=== PATIENT | male | born 1985 | race Caucasian/White ===

== ENCOUNTER 2016-12-26 12:39 | Inpatient (IN) | payer MEDICARE, MEDICAID ==
[2016-12-26] MEDS ORDERED: ACETAMINOPHEN 325 MG TABLET PO ONE (13:15)
[2016-12-26] MEDS ORDERED: NORMAL SALINE 1000 ML 1,000 ML IV ONE ×2 (13:16→15:19)
[2016-12-26 13:25] LABS: ABSOLUTE LYMPHOCYTES (AUTO) 4.4 10^3/uL (0.5-4.7); ABSOLUTE MONOCYTES (AUTO) 0.4 10^3/uL (0.1-1.4); ABSOLUTE NEUT (AUTO) 6.4 10^3/uL (1.7-8.2); BASOPHILS % (AUTO) 0.3 % (0-2); HEMATOCRIT 42.9 % (37.9-51.0); HEMOGLOBIN 14.9 g/dL (13.5-17.0); HGB HCT DIFFERENCE 1.8; LYMPHOCYTES % (AUTO) 39.1 % (13-45); MEAN CORPUSCULAR HEMOGLOBIN 33.8 pg (27.0-33.4); MEAN CORPUSCULAR HGB CONC 34.7 g/dL (32.0-36.0); MEAN CORPUSCULAR VOLUME 98 fl (80-97); MONOCYTES % (AUTO) 3.7 % (3-13); RED BLOOD COUNT 4.39 10^6/uL (4.35-5.55); RED CELL DISTRIBUTION WIDTH 17.4 % (11.5-14.0); SEGMENTED NEUTROPHILS % (AUTO) 56.9 % (42-78); WHITE BLOOD COUNT 11.2 10^3/uL (4.0-10.5)
--- NOTE | 2016-12-26 13:38 | ER Document Report ---
ED Respiratory Problem <JULIANNA SHOOK - Last Filed: 12/26/16 16:37> - General Time seen by provider: 13:10 Mode of Arrival: Ambulatory Information source: Parent TRAVEL OUTSIDE OF THE [place] IN LAST 30 DAYS: No - HPI Patient complains to provider of: Cough Onset: Other - see HPI note EMS treatments: Oxygen Associated symptoms: Congestion, Cough, Fever <CAROLIN LEO - Last Filed: 01/04/17 22:25> - General Chief Complaint: Shortness Of Breath Stated Complaint: RESPIRATORY DISTRESS Notes: Patient is a 31 year old male with a history of Down's syndrome presenting to the emergency department for cough, fever, and difficulty breathing. Patient had a cough that was onset on Saturday. Patient had a fever of 102.8 last night. Patient saw his PCP at 11:30 today and was found to have a 87% pulse ox and tachycardia. Patient was sent to the ED from Dr. Bright's office via EMS. Patient was placed on oxygen and now has a pulse ox of 91%. Patient was given some nyquil last night. Patient's PCP is Dr. Mckinley but he saw Dr. Cabral here in [place] today. Patient also has depression and takes antidepressants. Patient has no known allergies. (CAROLIN LEO) - Related Data Allergies/Adverse Reactions: No Known Allergies Allergy (Unverified 05/08/16 17:19) Home Medications: Current Home Medications Amitriptyline HCl [Elavil 10 mg Tablet] 10 mg PO Q8 12/26/16 [History] Bupropion HCl [Wellbutrin 100 mg Tablet] 100 mg PO DAILY 12/26/16 [History] Citalopram Hydrobromide [Celexa 40 mg Tablet] 40 mg PO DAILY 12/26/16 [History] Past Medical History - General Information source: Parent - Social History Smoking Status: Never Smoker Cigarette use (# per day): No Chew tobacco use (# tins/day): No Smoking Education Provided: No Frequency of alcohol use: None Drug Abuse: None Lives with: Family, Parents Family History: Other - Father with Bipolar Disorder. 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 <CAROLIN LEO - Last Filed: 01/04/17 22:25> Review of Systems - Review of Systems Constitutional: See HPI, Fever EENT: No symptoms reported Cardiovascular: No symptoms reported Respiratory: See HPI, Cough Gastrointestinal: No symptoms reported Genitourinary: No symptoms reported Male Genitourinary: No symptoms reported Musculoskeletal: No symptoms reported Skin: No symptoms reported Hematologic/Lymphatic: No symptoms reported Neurological/Psychological: No symptoms reported -: Yes All other systems reviewed and negative <CAROLIN LEO - Last Filed: 01/04/17 22:25> Physical Exam - Vital signs Interpretation: Tachycardic, Febrile - General General appearance: Appears well, Alert In distress: Mild - HEENT Head: Normocephalic, Atraumatic Eyes: Normal Pupils: PERRL Mucous membranes: Moist - Respiratory Respiratory status: No respiratory distress, Other - 91% on 2L O2 Chest status: Nontender Breath sounds: Rhonchi Chest palpation: Normal - Cardiovascular Rhythm: Regular Heart sounds: Normal auscultation Murmur: No - Abdominal Inspection: Normal Distension: No distension Bowel sounds: Normal Tenderness: Nontender Organomegaly: No organomegaly - Back Back: Normal, Nontender - Extremities General upper extremity: Normal inspection, Normal ROM, Normal strength General lower extremity: Normal inspection, Normal ROM, Normal strength - Neurological Neuro grossly intact: Yes Cognition: Normal Orientation: AAOx4 [place] Coma Scale Eye Opening: Spontaneous Daniele Coma Scale Verbal: Oriented [place] Coma Scale Motor: Obeys Commands Daniele Coma Scale Total: 15 Speech: Other - patient does not talk much Sensory: Normal - Psychological Associated symptoms: Normal affect, Normal mood - Skin Skin Temperature: Hot Skin Moisture: Dry <CAROLIN LEO - Last Filed: 01/04/17 22:25> - Vital signs Vitals: Resp 17 12/26/16 12:56 Course - Laboratory Result Diagrams: 12/26/16 13:05 12/26/16 13:05 - Diagnostic Test Radiology reviewed: Image reviewed, Reports reviewed - Bilateral lower lobe pneumonias right greater than left - Consults Dr. Harris Time consulted: 15:20 Consulted provider: will come to ER <JULIANNA SHOOK - Last Filed: 12/26/16 16:37> - Laboratory Result Diagrams: 12/28/16 06:09 12/28/16 06:09 <CAROLIN LEO - Last Filed: 01/04/17 22:25> - Re-evaluation Re-evalutation: 12/26/16 15:23 Patient originally had a pulse ox of 91% on 2 L nasal cannula. Heart rate 138. After 2 breathing treatments and a liter of IV fluids and Tylenol, his pulse is down to 115 and his pulse ox is up to 94% on 2 L. (JULIANNA SHOOK) - Vital Signs Vital signs: Temp Pulse Resp BP Pulse Ox 97.9 F 102 H 20 111/70 94 12/29/16 11:32 12/29/16 11:32 12/29/16 11:32 12/29/16 11:32 12/29/16 11:32 - Laboratory Laboratory results interpreted by me: 12/26/16 12/26/16 13:05 13:05 WBC 11.2 H MCV 98 H MCH 33.8 H RDW 17.4 H Sodium 135.6 L Glucose 124 H Critical Care Note - Critical Care Note Total time excluding time spent on procedures (mins): 30 <JULIANNA SHOOK - Last Filed: 12/26/16 16:37> Discharge - Discharge Admitting Provider: Hospitalist Unit Admitted: Medical Floor <JULIANNA SHOOK - Last Filed: 12/26/16 16:37> <CAROLIN LEO - Last Filed: 01/04/17 22:25> - Discharge Clinical Impression: Hypoxemia, Tachycardia, Dehydration, Down syndrome Pneumonia Qualifiers: Pneumonia type: due to unspecified organism Laterality: bilateral Lung location : lower lobe of lung Qualified Code(s): J18.9 - Pneumonia, unspecified organism Fever Qualifiers: Fever type: unspecified Qualified Code(s): R50.9 - Fever, unspecified Condition: Stable Disposition: HOME, SELF-CARE Scribe Documentation - Scribe Written by Scribe:: Carolin Leo 12/26/16 13:40 acting as scribe for :: Carlos <CAROLIN LEO - Last Filed: 01/04/17 22:25>
[2016-12-26 13:48] LABS: ALANINE AMINOTRANSFERASE 44 U/L (21-72); ALBUMIN 3.8 g/dL (3.5-5.0); ALKALINE PHOSPHATASE 78 U/L (38-126); ANION GAP 10 (5-19); ASPARTATE AMINO TRANSFERASE 31 U/L (17-59); BILIRUBIN,TOTAL 0.6 mg/dL (0.2-1.3); BLOOD UREA NITROGEN 19 mg/dL (7-20); CARBON DIOXIDE 26 mmol/L (22-30); CHLORIDE 100 mmol/L (98-107); CREATININE RESULT 0.86 mg/dL (0.52-1.25); GLUCOSE 124 mg/dL (75-110); SODIUM 135.6 mmol/L (137-145); TOTAL PROTEIN 6.8 g/dL (6.3-8.2)
[2016-12-26 14:10] LABS: VENOUS BLOOD BASE EXCESS 3.3 mmol/L; VENOUS BLOOD HCO3 30.6 mmol/L (20-32); VENOUS BLOOD PCO2 56.7 mmHg (35-63); VENOUS BLOOD PH 7.35 (7.30-7.42)
[2016-12-26] MEDS ORDERED: IPRATROPIUM/ALBUTEROL 0.5-2.5 MG/3 ML AMPUL NEB ONE (14:15)
[2016-12-26] MEDS ORDERED: ALBUTEROL SULFATE 0.083% NEB 2.5 MG/3 ML AMPUL NEB ONE (14:53)
[2016-12-26] MEDS ORDERED: LEVOFLOXACIN 750 MG/D5W RTU 150 ML IV ONE (14:53)
[2016-12-26] MEDS ORDERED: ONDANSETRON 4 MG TAB.RAPDIS PO PRN (16:25)
[2016-12-26] MEDS: NORMAL SALINE 1000 ML 1,000 ML IV PRN (16:41)
--- NOTE | 2016-12-26 16:56 | PDOC H&P ---
History of Present Illness Admission Date/PCP: FADI MCKENZIE MD Patient complains of: Shortness of breath and pneumonia. History of Present Illness: HALLEY SPRING is a 31 year old male with Down syndrome who presents with a 2 day history of cough shortness of breath and was found to have pneumonia today. He has also had hypoxia was found to have oxygen saturations of 87% with presentation to his primary care office today. The patient has not been around anyone who has been sick. The patient does not give any history and all history is given by his mother who is at the bedside. Past Medical History Cardiac Medical History: Reports: None Pulmonary Medical History: Reports: None EENT Medical History: Reports: None Neurological Medical History: Reports: Other - Down syndrome Endocrine Medical History: Reports: None Renal/ Medical History: Reports: None Malignancy Medical History: Reports: Leukemia - as a child GI Medical History: Reports: None Skin Medical History: Reports: None Psychiatric Medical History: Reports: Depression Traumatic Medical History: Reports: None Infectious Medical History: Reports: None Past Surgical History Past Surgical History: Reports: Other - port for leukemia as a child Social History Information Source: Parent Lives with: Family, Parents Smoking Status: Never Smoker Frequency of Alcohol Use: None Hx Recreational Drug Use: No Drugs: None - Advance Directive Resuscitation Status: Full Code Surrogate healthcare decision maker:: Mother is his caregiver Family History Family History: Other - Father with Bipolar Disorder. Family History: Father is and had bipolar disorder. Mother is alive and healthy. Parental Family History Reviewed: Yes Children Family History Reviewed: No Sibling(s) Family History Reviewed.: No Medication/Allergy Home Medications: Ondansetron [Zofran Odt 4 mg Tablet] 1 - 2 tab PO Q4H PRN #15 tab.rapdis Allergies/Adverse Reactions: No Known Allergies Allergy (Unverified 05/08/16 17:19) Review of Systems ROS unobtainable: Due to mental status - Patient has Down syndrome. History is obtained from the mother. Constitutional: PRESENT: chills, fever(s) Eyes: ABSENT: visual disturbances Ears: ABSENT: hearing changes Cardiovascular: PRESENT: dyspnea on exertion. ABSENT: edema, orthropnea Respiratory: PRESENT: as per HPI Gastrointestinal: ABSENT: abdominal pain, constipation, diarrhea, hematemesis, hematochezia, nausea, vomiting Musculoskeletal: ABSENT: joint swelling Integumentary: ABSENT: rash, wounds Neurological: PRESENT: other - Patient has Down's syndrome Psychiatric: ABSENT: anxiety, depression, homidical ideation, suicidal ideation Hematologic/Lymphatic: ABSENT: easy bleeding, easy bruising Physical Exam Vital Signs: Temp Pulse Resp BP Pulse Ox 30 H 115/95 H 92 12/26/16 15:01 12/26/16 15:01 12/26/16 15:01 General appearance: PRESENT: no acute distress, well-developed, well-nourished Head exam: PRESENT: atraumatic, normocephalic Eye exam: PRESENT: conjunctiva pink, EOMI, PERRLA. ABSENT: scleral icterus Ear exam: PRESENT: normal external ear exam Mouth exam: PRESENT: moist, tongue midline Neck exam: ABSENT: carotid bruit, JVD, lymphadenopathy, thyromegaly Respiratory exam: PRESENT: rales - Bibasilar inspiratory rales.. ABSENT: rhonchi, wheezes Cardiovascular exam: PRESENT: tachycardia. ABSENT: diastolic murmur, rubs, systolic murmur GI/Abdominal exam: PRESENT: normal bowel sounds, soft. ABSENT: distended, guarding, mass, organolmegaly, rebound, tenderness Rectal exam: PRESENT: deferred Extremities exam: ABSENT: calf tenderness, clubbing, pedal edema Neurological exam: PRESENT: alert, awake, oriented to person, oriented to place , CN II-XII grossly intact. ABSENT: oriented to time, oriented to situation, motor sensory deficit Psychiatric exam: PRESENT: anxious Skin exam: PRESENT: dry, intact, warm. ABSENT: cyanosis, rash Results Laboratory Results: 12/26/16 13:05 12/26/16 13:05 12/26/16 12/26/16 12/26/16 13:05 13:05 13:45 WBC 11.2 H RBC 4.39 Hgb 14.9 Hct 42.9 MCV 98 H MCH 33.8 H MCHC 34.7 RDW 17.4 H Plt Count 159 Seg Neutrophils % 56.9 Lymphocytes % 39.1 Monocytes % 3.7 Eosinophils % 0.0 Basophils % 0.3 Absolute Neutrophils 6.4 Absolute Lymphocytes 4.4 Absolute Monocytes 0.4 Absolute Eosinophils 0.0 Absolute Basophils 0.0 VBG pH 7.35 VBG pCO2 56.7 VBG HCO3 30.6 VBG Base Excess 3.3 Sodium 135.6 L Potassium 4.0 Chloride 100 Carbon Dioxide 26 Anion Gap 10 BUN 19 Creatinine 0.86 Est GFR ( Amer) > 60 Est GFR (Non-Af Amer) > 60 Glucose 124 H Calcium 9.0 Total Bilirubin 0.6 AST 31 ALT 44 Alkaline Phosphatase 78 Total Protein 6.8 Albumin 3.8 Impressions: Chest X-Ray 12/26/16 13:15 IMPRESSION: Bibasilar airspace disease worrisome for pneumonia. Assessment & Plan - Diagnosis (1) Pneumonia Qualifiers: Pneumonia type: due to unspecified organism Laterality: bilateral Lung location: lower lobe of lung Qualified Code(s): J18.9 - Pneumonia, unspecified organism Is this a current diagnosis for this admission?: YesPlan: The patient has bilateral pneumonia along with hypoxia. We will treat with Levaquin. Influenza tests are pending at this time. We'll treat for presumptive community-acquired gram-positive cocci pneumonia. (2) Dehydration Is this a current diagnosis for this admission?: YesPlan: We'll give IV fluids. (3) Down syndrome Is this a current diagnosis for this admission?: YesPlan: The patient lives with his mother who is his caregiver. - Time Time Spent: 50 to 70 Minutes - Inpatient Certification Medical Necessity: Need for IV Antibiotics - Plan Summary Plan Summary: We'll make a full admission. given his hypoxia, I anticipate this will require greater than a two midnight hospital stay.
[2016-12-26] MEDS ORDERED: ALBUTEROL SULFATE 0.042% NEB (1.25 MG/3 ML) AMPUL NEB ONE (20:23)
[2016-12-26] MEDS: ALBUTEROL SULFATE 0.042% NEB (1.25 MG/3 ML) AMPUL NEB SCH (21:04)
[2016-12-26 21:15] LABS: APPEARANCE,URINE SLIGHTLY-CLOUDY; BILIRUBIN,URINE NEGATIVE (NEGATIVE); GLUCOSE, URINE NEGATIVE (NEGATIVE); KETONES,URINE NEGATIVE (NEGATIVE); LEUKOCYTE ESTERASE,URINE NEGATIVE (NEGATIVE); NITRITE,URINE NEGATIVE (NEGATIVE); PROTEIN,URINE 30 mg/dL (NEGATIVE); URINE SPECIFIC GRAVITY 1.012; UROBILINOGEN,URINE NEGATIVE mg/dL (<2.0)
[2016-12-26] MEDS ORDERED: ENOXAPARIN SODIUM INJ 40 MG/0.4 ML DISP.SYRIN SUBCUT ONE (21:30)
[2016-12-26] MEDS: FAMOTIDINE 20 MG TABLET PO SCH (22:00)
[2016-12-27] MEDS ORDERED: ACETAMINOPHEN 325 MG TABLET PO PRN (03:37)
[2016-12-27 06:56] LABS: ABSOLUTE LYMPHOCYTES (AUTO) 2.2 10^3/uL (0.5-4.7); ABSOLUTE MONOCYTES (AUTO) 0.4 10^3/uL (0.1-1.4); BASOPHILS % (AUTO) 0.1 % (0-2); HGB HCT DIFFERENCE 1.8; LYMPHOCYTES % (AUTO) 28.8 % (13-45); MEAN CORPUSCULAR HEMOGLOBIN 33.7 pg (27.0-33.4); MEAN CORPUSCULAR HGB CONC 34.8 g/dL (32.0-36.0); MEAN CORPUSCULAR VOLUME 97 fl (80-97); MONOCYTES % (AUTO) 4.6 % (3-13); RED BLOOD COUNT 3.72 10^6/uL (4.35-5.55); RED CELL DISTRIBUTION WIDTH 17.7 % (11.5-14.0); SEGMENTED NEUTROPHILS % (AUTO) 66.5 % (42-78); WHITE BLOOD COUNT 7.6 10^3/uL (4.0-10.5)
[2016-12-27 07:01] LABS: HEMOGLOBIN 12.6 g/dL (13.5-17.0)
[2016-12-27 07:16] LABS: ANION GAP 7 (5-19); BLOOD UREA NITROGEN 7 mg/dL (7-20); CALCIUM 8.5 mg/dL (8.4-10.2); CARBON DIOXIDE 24 mmol/L (22-30); CHLORIDE 105 mmol/L (98-107); CREATININE RESULT 0.69 mg/dL (0.52-1.25); GLUCOSE 106 mg/dL (75-110); POTASSIUM 3.5 mmol/L (3.6-5.0); SODIUM 136.2 mmol/L (137-145)
[2016-12-27] MEDS: ALBUTEROL SULFATE 0.042% NEB (1.25 MG/3 ML) AMPUL NEB SCH ×3 (08:04→19:50)
[2016-12-27] MEDS: FAMOTIDINE 20 MG TABLET PO SCH ×2 (09:21→21:48)
[2016-12-27] MEDS: ENOXAPARIN SODIUM INJ 40 MG/0.4 ML DISP.SYRIN SUBCUT SCH (09:22)
[2016-12-27] MEDS: LEVOFLOXACIN 750 MG/D5W RTU 150 ML IV SCH (09:22)
[2016-12-27] MEDS ORDERED: (PENDING PHARMACY ID) (Citalopram Hydrobromide [Celexa 40 Mg Tablet] 40 MG) PO SCH (10:00)
[2016-12-27] MEDS: BUPROPION HCL 100 MG TABLET PO SCH (10:13)
[2016-12-27] MEDS: CITALOPRAM HYDROBROMIDE 20 MG TABLET PO SCH (10:13)
--- NOTE | 2016-12-27 11:04 | PDOC PROGRESS REPORT ---
Subjective Progress Note for:: 12/27/16 Subjective:: Patient denies any complaints. Patient's mother reports he had a good night. Physical Exam Vital Signs: Temp Pulse Resp BP Pulse Ox 98.2 F 109 H 16 117/77 96 12/27/16 08:02 12/27/16 08:04 12/27/16 08:04 12/27/16 08:02 12/27/16 08:04 Pulse Oximeter Continuous Start: 12/26/16 16: 21 Freq: RTQ4 Status: Active Document 12/27/16 08:04 HCR (Rec: 12/27/16 09:09 HCR [id number]) Pulse Oximetry Assessment Oxygen Saturation (92-100) 96 Oxygen Delivery Method Room Air Fraction of Inspired Oxygen (FIO2) 21 Equipment Usage Equipment in Use Continuous SpO2 Machine # 10 Intake & Output 12/26/16 12/27/16 12/28/16 06:59 06:59 06:59 Weight 51.2 kg General appearance: PRESENT: no acute distress Eye exam: PRESENT: conjunctiva pink. ABSENT: scleral icterus Mouth exam: PRESENT: moist, tongue midline Neck exam: ABSENT: JVD Respiratory exam: PRESENT: rales - Bibasilar rails.. ABSENT: rhonchi, wheezes Cardiovascular exam: PRESENT: RRR. ABSENT: diastolic murmur, rubs, systolic murmur GI/Abdominal exam: PRESENT: normal bowel sounds, soft. ABSENT: distended, guarding, mass, organolmegaly, rebound, tenderness Extremities exam: ABSENT: calf tenderness, clubbing, pedal edema Neurological exam: PRESENT: alert, awake, oriented to person, oriented to place Psychiatric exam: PRESENT: appropriate affect Skin exam: PRESENT: dry, intact, warm. ABSENT: cyanosis, rash Results Laboratory Results: 12/27/16 06:10 12/27/16 06:10 12/26/16 12/27/16 12/27/16 20:35 06:10 06:10 WBC 7.6 RBC 3.72 L Hgb 12.6 L D Hct 36.0 L MCV 97 MCH 33.7 H MCHC 34.8 RDW 17.7 H Plt Count 122 L Seg Neutrophils % 66.5 Lymphocytes % 28.8 Monocytes % 4.6 Eosinophils % 0.0 Basophils % 0.1 Absolute Neutrophils 5.0 Absolute Lymphocytes 2.2 Absolute Monocytes 0.4 Absolute Eosinophils 0.0 Absolute Basophils 0.0 Sodium 136.2 L Potassium 3.5 L Chloride 105 Carbon Dioxide 24 Anion Gap 7 BUN 7 Creatinine 0.69 Est GFR ( Amer) > 60 Est GFR (Non-Af Amer) > 60 Glucose 106 Calcium 8.5 Urine Color YELLOW Urine Appearance SLIGHTLY-CLOUDY Urine pH 7.0 Ur Specific [place] 1.012 Urine Protein 30 H Urine Glucose (UA) NEGATIVE Urine Ketones NEGATIVE Urine Blood NEGATIVE Urine Nitrite NEGATIVE Ur Leukocyte Esterase NEGATIVE Urine WBC (Auto) 2 Impressions: Chest X-Ray 12/26/16 13:15 IMPRESSION: Bibasilar airspace disease worrisome for pneumonia. Assessment & Plan - Diagnosis (1) Pneumonia Qualifiers: Pneumonia type: due to unspecified organism Laterality: bilateral Lung location: lower lobe of lung Qualified Code(s): J18.9 - Pneumonia, unspecified organism Is this a current diagnosis for this admission?: YesPlan: The patient has bilateral pneumonia along with hypoxia. We will treat with Levaquin. Influenza tests are negative. We'll treat for presumptive community- acquired gram-positive cocci pneumonia. (2) Dehydration Is this a current diagnosis for this admission?: YesPlan: We will continue with IV fluids. (3) Down syndrome Is this a current diagnosis for this admission?: YesPlan: The patient lives with his mother who is his caregiver. - Time Time Spent with patient: 25-34 minutes - Inpatient Certification Medical Necessity: Need for IV Antibiotics - Plan Summary Plan Summary: If he continues to do well we will discharge home tomorrow.
[2016-12-27] MEDS: AMITRIPTYLINE HCL 10 MG TABLET PO SCH ×2 (14:11→21:48)
[2016-12-27] MEDS: NORMAL SALINE 1000 ML 1,000 ML IV PRN (18:36)
[2016-12-28] MEDS: AMITRIPTYLINE HCL 10 MG TABLET PO SCH ×3 (05:25→21:12)
[2016-12-28 07:13] LABS: ABSOLUTE LYMPHOCYTES (AUTO) 1.3 10^3/uL (0.5-4.7); ABSOLUTE MONOCYTES (AUTO) 0.3 10^3/uL (0.1-1.4); BASOPHILS % (AUTO) 0.2 % (0-2); EOSINOPHILS % (AUTO) 0.1 % (0-6); HEMATOCRIT 35.4 % (37.9-51.0); HEMOGLOBIN 12.3 g/dL (13.5-17.0); HGB HCT DIFFERENCE 1.5; LYMPHOCYTES % (AUTO) 23.2 % (13-45); MEAN CORPUSCULAR HEMOGLOBIN 33.6 pg (27.0-33.4); MEAN CORPUSCULAR HGB CONC 34.7 g/dL (32.0-36.0); MEAN CORPUSCULAR VOLUME 97 fl (80-97); MONOCYTES % (AUTO) 5.1 % (3-13); RED BLOOD COUNT 3.66 10^6/uL (4.35-5.55); RED CELL DISTRIBUTION WIDTH 17.5 % (11.5-14.0); SEGMENTED NEUTROPHILS % (AUTO) 71.4 % (42-78); WHITE BLOOD COUNT 5.5 10^3/uL (4.0-10.5)
[2016-12-28 07:38] LABS: ANION GAP 8 (5-19); BLOOD UREA NITROGEN 6 mg/dL (7-20); CALCIUM 8.1 mg/dL (8.4-10.2); CARBON DIOXIDE 21 mmol/L (22-30); CHLORIDE 105 mmol/L (98-107); CREATININE RESULT 0.65 mg/dL (0.52-1.25); GLUCOSE 92 mg/dL (75-110); POTASSIUM 3.6 mmol/L (3.6-5.0); SODIUM 134.2 mmol/L (137-145)
[2016-12-28] MEDS: ALBUTEROL SULFATE 0.042% NEB (1.25 MG/3 ML) AMPUL NEB SCH ×3 (08:56→19:45)
[2016-12-28] MEDS: BUPROPION HCL 100 MG TABLET PO SCH (10:58)
[2016-12-28] MEDS: LEVOFLOXACIN 750 MG/D5W RTU 150 ML IV SCH (10:58)
[2016-12-28] MEDS: FAMOTIDINE 20 MG TABLET PO SCH ×2 (10:58→21:12)
[2016-12-28] MEDS: CITALOPRAM HYDROBROMIDE 20 MG TABLET PO SCH (10:58)
[2016-12-28] MEDS: NORMAL SALINE 1000 ML 1,000 ML IV PRN (10:59)
[2016-12-28] MEDS: ENOXAPARIN SODIUM INJ 40 MG/0.4 ML DISP.SYRIN SUBCUT SCH (11:06)
--- NOTE | 2016-12-28 11:42 | PDOC PROGRESS REPORT ---
Subjective Progress Note for:: 12/28/16 Subjective:: Complains of a cough Physical Exam Vital Signs: Temp Pulse Resp BP Pulse Ox 98.6 F 112 H 16 125/75 93 12/28/16 04:14 12/28/16 08:56 12/28/16 08:56 12/28/16 04:14 12/28/16 08:56 Pulse Oximeter Continuous Start: 12/26/16 16: 21 Freq: RTQ4 Status: Active Document 12/28/16 08:56 HCR (Rec: 12/28/16 10:00 HCR [id number]) Pulse Oximetry Assessment Oxygen Saturation (92-100) 93 Oxygen Delivery Method Room Air Fraction of Inspired Oxygen (FIO2) 21 Equipment Usage Equipment in Use Continuous SpO2 Machine # 93 Intake & Output 12/27/16 12/28/16 12/29/16 06:59 06:59 06:59 Intake Total 100 Balance 100 Weight 51.2 kg 52 kg General appearance: PRESENT: no acute distress Eye exam: PRESENT: conjunctiva pink. ABSENT: scleral icterus Mouth exam: PRESENT: moist, tongue midline Neck exam: ABSENT: carotid bruit, JVD, lymphadenopathy, thyromegaly Respiratory exam: PRESENT: clear to auscultation eliu. ABSENT: rales, rhonchi, wheezes GI/Abdominal exam: PRESENT: normal bowel sounds, soft. ABSENT: distended, guarding, mass, organolmegaly, rebound, tenderness Extremities exam: ABSENT: calf tenderness, clubbing, pedal edema Neurological exam: PRESENT: alert, awake, oriented to person, oriented to place Psychiatric exam: PRESENT: flat affect Skin exam: PRESENT: dry, intact, warm. ABSENT: cyanosis, rash Results Laboratory Results: 12/28/16 06:09 12/28/16 06:09 12/28/16 12/28/16 06:09 06:09 WBC 5.5 RBC 3.66 L Hgb 12.3 L Hct 35.4 L MCV 97 MCH 33.6 H MCHC 34.7 RDW 17.5 H Plt Count 123 L Seg Neutrophils % 71.4 Lymphocytes % 23.2 Monocytes % 5.1 Eosinophils % 0.1 Basophils % 0.2 Absolute Neutrophils 4.0 Absolute Lymphocytes 1.3 Absolute Monocytes 0.3 Absolute Eosinophils 0.0 Absolute Basophils 0.0 Sodium 134.2 L Potassium 3.6 Chloride 105 Carbon Dioxide 21 L Anion Gap 8 BUN 6 L Creatinine 0.65 Est GFR ( Amer) > 60 Est GFR (Non-Af Amer) > 60 Glucose 92 Calcium 8.1 L Impressions: Chest X-Ray 12/26/16 13:15 IMPRESSION: Bibasilar airspace disease worrisome for pneumonia. Assessment & Plan - Diagnosis (1) Pneumonia Qualifiers: Pneumonia type: due to unspecified organism Laterality: bilateral Lung location: lower lobe of lung Qualified Code(s): J18.9 - Pneumonia, unspecified organism Is this a current diagnosis for this admission?: YesPlan: The patient has bilateral pneumonia along with hypoxia. We will treat with Levaquin. Influenza tests are negative. We'll treat for presumptive community- acquired gram-positive cocci pneumonia. (2) Dehydration Is this a current diagnosis for this admission?: YesPlan: We will continue with IV fluids. (3) Down syndrome Is this a current diagnosis for this admission?: YesPlan: The patient lives with his mother who is his caregiver. - Time Time Spent with patient: 25-34 minutes - Inpatient Certification Medical Necessity: Need for IV Antibiotics
[2016-12-29] MEDS: AMITRIPTYLINE HCL 10 MG TABLET PO SCH (05:20)
[2016-12-29 08:05] VITALS: BP 111/70
[2016-12-29] MEDS: ALBUTEROL SULFATE 0.042% NEB (1.25 MG/3 ML) AMPUL NEB SCH (08:55)
[2016-12-29] MEDS: CITALOPRAM HYDROBROMIDE 20 MG TABLET PO SCH (09:33)
[2016-12-29] MEDS: FAMOTIDINE 20 MG TABLET PO SCH (09:34)
[2016-12-29] MEDS: BUPROPION HCL 100 MG TABLET PO SCH (09:34)
[2016-12-29] MEDS: ENOXAPARIN SODIUM INJ 40 MG/0.4 ML DISP.SYRIN SUBCUT SCH (09:35)
[2016-12-29] MEDS ORDERED: LEVOFLOXACIN 750 MG TABLET PO SCH (10:00)
--- NOTE | 2016-12-29 15:27 | PDOC DISCHARGE SUMMARY ---
General - Admit/Disc Date/PCP Admission Date/Primary Care Provider: 12/26/16 16:39 FADI MCKENZIE MD Discharge Date: 12/29/16 - Discharge Diagnosis (1) Pneumonia Is this a current diagnosis for this admission?: YesSummary: Negative cultures treated with Levaquin. (2) Dehydration Is this a current diagnosis for this admission?: Yes (3) Down syndrome Is this a current diagnosis for this admission?: Yes - Additional Information Resuscitation Status: Full Code Discharge Diet: Regular Discharge Activity: Activity As Tolerated Home Medications: Amitriptyline HCl [Elavil 10 mg Tablet] 10 mg PO Q8 12/26/16 Bupropion HCl [Wellbutrin 100 mg Tablet] 100 mg PO DAILY 12/26/16 Citalopram Hydrobromide [Celexa 40 mg Tablet] 40 mg PO DAILY 12/26/16 Levofloxacin [Levaquin 750 mg Tablet] 750 mg PO DAILY #4 tablet 12/29/16 History of Present Illness History of Present Illness: HALLEY SPRING is a 31 year old male with Down syndrome who presents with a 2 day history of cough shortness of breath and was found to have pneumonia today. He has also had hypoxia was found to have oxygen saturations of 87% with presentation to his primary care office today. The patient has not been around anyone who has been sick. The patient does not give any history and all history is given by his mother who is at the bedside. Hospital Course Hospital Course: 81-year-old male with Down syndrome presented with cough shortness of breath and hypoxia. Patient was found to have pneumonia. He was treated presumptively for a community acquired pneumonia with Levaquin. The patient improved and he was no longer hypoxic. He had cultures done and they were all negative. It's presumed that he was treated for gram-positive cocci as the cause for his pneumonia. Physical Exam Vital Signs: Temp Pulse Resp BP Pulse Ox 97.9 F 102 H 20 111/70 94 12/29/16 11:32 12/29/16 11:32 12/29/16 11:32 12/29/16 11:32 12/29/16 11:32 Pulse Oximeter Continuous Start: 12/26/16 16: 21 Freq: RTQ4 Status: Complete Document 12/29/16 08:55 CBR (Rec: 12/29/16 09:26 CBR [id number]) Pulse Oximetry Assessment Oxygen Saturation (92-100) 95 Oxygen Flow Rate (L/min) 1 Oxygen Delivery Method Nasal Cannula Equipment Usage Equipment Standby Continuous SpO2 Machine # 10 Intake & Output 12/28/16 12/29/16 12/30/16 06:59 06:59 06:59 Intake Total 100 240 Balance 100 240 Weight 52 kg General appearance: PRESENT: no acute distress Eye exam: PRESENT: conjunctiva pink. ABSENT: scleral icterus Mouth exam: PRESENT: moist, tongue midline Neck exam: ABSENT: JVD Respiratory exam: PRESENT: clear to auscultation eliu. ABSENT: rales, rhonchi, wheezes Cardiovascular exam: PRESENT: RRR. ABSENT: diastolic murmur, rubs, systolic murmur GI/Abdominal exam: PRESENT: normal bowel sounds, soft. ABSENT: distended, guarding, mass, organolmegaly, rebound, tenderness Extremities exam: ABSENT: calf tenderness, clubbing, pedal edema Psychiatric exam: PRESENT: appropriate affect Skin exam: PRESENT: dry, intact, warm. ABSENT: cyanosis, rash Results Laboratory Results: 12/28/16 06:09 12/28/16 06:09 Impressions: Chest X-Ray 12/26/16 13:15 IMPRESSION: Bibasilar airspace disease worrisome for pneumonia. Qualifiers PATEINT BEING DISCHARGED WITH ANY OF THE FOLLOWING DIAGNOSIS?: No Plan Discharge Plan: Discharged home in stable condition. Will follow primary care in 1-2 weeks. Time Spent: Less than 30 Minutes
== END 2016-12-29 12:05 | disposition home or self-care (01) | DRG 195 ==
LOC: ER 12:39 → EH 16:39 → 2N 12-27 01:02
PROVIDERS: ADMIT Internal Medicine; ATTEND Internal Medicine
PROC: 3E0F73Z Introduction of Anti-inflammatory into Respiratory Tract, Via Natural or Artificial Opening (ICD-10-PCS; principal; 2016-12-26)
DX: J18.9 Pneumonia, unspecified organism (principal); E86.0 Dehydration; Q90.9 Down syndrome, unspecified; R09.02 Hypoxemia; F32.9 Major depressive disorder, single episode, unspecified; Z85.6 Personal history of leukemia; Z79.899 Other long term (current) drug therapy; Z81.8 Family history of other mental and behavioral disorders
CPT/HCPCS: 36415; 71010; 80048; 80053; 81001; 82803; 85025; 87040; 87804; 94640; 94762; 96365; 96367; 99291; J1650; J1956; J3490; J7030; J7620; S0119